=== PATIENT | female | born 1995 | race Caucasian/White ===

== ENCOUNTER 2019-09-14 10:51 | Outpatient (CLI) | payer OTHER ==
[~2019-09-14] VITALS: Ht 172.7 cm; Wt 92.1 kg
[2019-09-15] MEDS ORDERED: STUACAP PO (08:07)
== END 2019-09-14 12:09 | disposition home or self-care (01) ==
LOC: M LDO 10:51
PROVIDERS: ATTEND Registered Nurse Maternal Newborn
DX: O62.0 Primary inadequate contractions (principal); Z3A.40 40 weeks gestation of pregnancy
CPT/HCPCS: 59025; G0378; G0463

== ENCOUNTER 2019-09-14 17:39 | Outpatient (CLI) | payer OTHER ==
[~2019-09-14] VITALS: Ht 172.7 cm; Wt 92.8 kg
[2019-09-14] MEDS ORDERED: LR 1,000 ML IV ONE (19:00)
--- NOTE | 2019-09-14 19:05 | IPNPDOC ---
Text Note Date of Service The patient was seen on 09/14/19. NOTE Patient is 24yo at 40.3wks. C/o LBP and cramps. Intermittent contractions. No loss of fluid or bleeding. Good movement. PE: VS WNL GEN NAD, Comfortable SVE: 50/-3 FHT: Category 1, 130s, reactive, no decels. contractions irreg [id number]. A/P: Fetus reassuring. Patient not in labor (prodromal) likely from dehydration and no rupture of membranes. Patient given labor precautions, rupture of membranes precautions and kick counts. We will give her 1L IVF to assist with dehydration. Given patient relaxation advice to assist with prodromal labor. Cathy Gerard MD Sep 14, 2019 19:05
[2019-09-14 19:07] VITALS: BP 113/55
[2019-09-15] MEDS ORDERED: STUACAP PO (08:07)
== END 2019-09-14 19:45 | disposition home or self-care (01) ==
LOC: M LDO 17:39
PROVIDERS: ATTEND Obstetrics & Gynecology
DX: O26.893 Other specified pregnancy related conditions, third trimester (principal); O99.283 Endocrine, nutritional and metabolic diseases complicating pregnancy, third trimester; E86.0 Dehydration; Z3A.40 40 weeks gestation of pregnancy
CPT/HCPCS: 59025; G0378

== ENCOUNTER 2019-09-15 07:22 | Inpatient (IN) | payer OTHER ==
[~2019-09-15] VITALS: Ht 172.7 cm; Wt 91.5 kg
[2019-09-15 07:53] VITALS: BP 129/84
[2019-09-15] MEDS ORDERED: STUACAP PO (08:07)
[2019-09-15 08:24] LABS: HEMATOCRIT 34.7 % (36.0-47.0); HEMOGLOBIN 11.3 g/dl (12.0-15.5); MEAN CORPUSCULAR HEMOGLOBIN 28.5 pg (27.0-33.0); MEAN CORPUSCULAR HGB CONC 32.6 g/dl (32.0-36.5); MEAN CORPUSCULAR VOLUME 87.4 fl (80.0-96.0); PLATELET COUNT, AUTOMATED 357 10^3/uL (150-450); RED BLOOD COUNT 3.97 10^6/uL (4.00-5.40); WHITE BLOOD COUNT 18.7 10^3/uL (4.0-10.0)
[2019-09-15 08:25] VITALS: BP 128/84
[2019-09-15 08:51] VITALS: BP 135/94
[2019-09-15] MEDS ORDERED: OXYTOCIN 30 UNITS IN 0.9% NaCl 500ML IV BAG (J2590) As Ordered ONE (08:56)
[2019-09-15] MEDS ORDERED: LR 1,000 ML IV SCH (09:52)
[2019-09-15] MEDS ORDERED: LACTATED RINGER'S 1000 ML IV STA (09:52)
[2019-09-15] MEDS ORDERED: OXYTOCIN INJ 10 UNITS/ML VIAL (J2590) IV ONE (10:00)
[2019-09-15] MEDS ORDERED: OXYTOCIN DRIP 30 UNITS in IV 1 EA IV ONE (10:00)
[2019-09-15] MEDS ORDERED: MEASLES,MUMPS,RUBELLA VACCINE INJ (MMR-II) (90707) SC SCH (10:00)
[2019-09-15] MEDS ORDERED: ANUSOL HC CREAM 30GM TOP PRN (10:00)
[2019-09-15] MEDS ORDERED: DIBUCAINE 1% OINTMENT 30GM TOP PRN (10:00)
[2019-09-15] MEDS ORDERED: IBUPROFEN 800 MG TAB PO PRN (10:00)
[2019-09-15] MEDS ORDERED: ACETAMINOPHEN 500 MG TAB PO PRN (10:00)
[2019-09-15] MEDS ORDERED: DOCUSATE SODIUM 100 MG CAP PO PRN (10:00)
[2019-09-15] MEDS ORDERED: MOM 30ML SUSPENSION UDC PO PRN (10:00)
[2019-09-15] MEDS ORDERED: ACETAMINOPHEN TAB 650MG DOSE (2X325MG) PO PRN (10:00)
[2019-09-15] MEDS ORDERED: RHOGAM 300 MCG (1500 IU) INJ (J2790) IM SCH (10:00)
[2019-09-15] MEDS ORDERED: METHYLERGONOVINE MALEATE 0.2 MG TAB PO PRN (10:00)
[2019-09-15 10:13] LABS: CORD GAS ABE A -7.7; CORD GAS HCO3 A 17.8 MEQ/L; CORD GAS O2 SAT A 74.8 %; CORD GAS PO2 A 35.2 mmHg; CORD GAS SBC A 17.8 MEQ/L; CORD GAS TCO2 A 18.9 MEQ/L
[2019-09-15 10:14] LABS: CORD GAS PH A 7.312 UNITS
[2019-09-15 10:15] LABS: CORD GAS ABE V -7.8; CORD GAS O2 SAT V 81.2 %; CORD GAS PCO2 V 32.7 mmHg; CORD GAS PO2 V 39.2 mmHg; CORD GAS SBC V 17.9 MEQ/L
[2019-09-15 10:18] LABS: CORD GAS PH V 7.333 UNITS
[2019-09-15] MEDS: IBUPROFEN 600 MG TAB PO PRN (10:21)
[2019-09-15 11:20] VITALS: BP 123/56
[2019-09-15] MEDS ORDERED: LIDOCAINE 1% MDV 20ML VIAL As Ordered ONE (14:20)
[2019-09-15 18:00] VITALS: BP 113/61
[2019-09-16] MEDS ORDERED: OXYTOCIN INJ 10 UNITS/ML VIAL (J2590) As Ordered ONE (03:14)
[2019-09-16 05:39] VITALS: BP 101/61
[2019-09-16 08:00] LABS: HEMATOCRIT 26.6 % (36.0-47.0); MEAN CORPUSCULAR HGB CONC 32.3 g/dl (32.0-36.5); MEAN CORPUSCULAR VOLUME 89.6 fl (80.0-96.0); RED BLOOD COUNT 2.97 10^6/uL (4.00-5.40); WHITE BLOOD COUNT 16.5 10^3/uL (4.0-10.0)
[2019-09-16] MEDS: PRENATAL VITAMINS CHEWABLE TABLET PO SCH (08:01)
--- NOTE | 2019-09-16 08:04 | IPN ---
DATE: 09/16/2019 DAY #1: This lady is a 24-year-old, 2, now para 1, had a spontaneous vaginal delivery at 40 and 4 weeks of gestation a live male 8 pounds 4 ounces (3730 grams), score of 8 and 9 at one and five minutes, respectfully. Cord times one the body and meconium was noted at the cords on suctioning at the perineum. Arterial pH 7.31, base excess -7.7, venous pH 7.33, base excess -7.8. She had a first-degree, which was repaired in the usual fashion. This morning her blood pressure is 101/61, respirations 18, pulse 62, temperature is 98.8. Her admitting hemoglobin was 11.3, hematocrit 34.7 and platelets are 357. The rest the examination unremarkable. She is normocephalic, atraumatic. Neck full range of motion. Pupils equal and reactive to light. Distal pulses are symmetric. No evidence of deep venous thrombosis (DVT), pulmonary embolism (PE) or superficial phlebitis. Chest is clear bilaterally bases. No wheezes or rhonchi. No costovertebral angle (CVA) tenderness. Abdomen soft. Uterus 2 below. Lochia is moderate. Perineum is healing. She is having some difficulty in breast-feeding today. 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 Planned circumcision of the baby this morning at 0900 hours. Baby is nothing by mouth at 0800 hours. Plan is for discharge tomorrow morning. Medications are at [facility]. Patient will pick them up on Tuesday and will have a planned 6-week checkup at [facility].
[2019-09-16 08:09] LABS: HEMOGLOBIN 8.6 g/dl (12.0-15.5); PLATELET COUNT, AUTOMATED 240 10^3/uL (150-450)
[2019-09-16 18:00] VITALS: BP 111/56
[2019-09-17 05:32] VITALS: BP 115/55
[2019-09-17] MEDS ORDERED: IBUP80TA PO (07:15)
[2019-09-17] MEDS ORDERED: DOCU100C16 PO (07:15)
[2019-09-17] MEDS ORDERED: DIBU10OI TOP (07:15)
[2019-09-17] MEDS: PRENATAL VITAMINS CHEWABLE TABLET PO SCH (08:09)
[2019-09-17] MEDS: IBUPROFEN 600 MG TAB PO PRN (08:10)
--- NOTE | 2019-09-19 16:37 | DN ---
DATE OF DELIVERY: 09/15/2019 DELIVERY NOTE: This lady is a 24-year-old, 2, para 0, admitted in spontaneous labor at 40 and 4 weeks of gestation with spontaneous rupture of membranes of meconium stained liquor. She had a category 1 strip. She rapidly progressed to full dilatation. She delivered without anesthesia a live male , 8 pounds 4 ounces (3730 grams). score of 8 and 9 at one and five minutes. respectfully. Cord around the body times one and around the shoulder. There was meconium at delivery. We sucked out the baby for meconium from the trachea prior to delivery of the rest the baby. Arterial pH was 7.31, base excess was -7.7. Venous pH was 7.33, base excess was -7.8. Placenta delivered spontaneous thereafter. Three-vessels in the cord, membranes and tissues intact. The uterus contracted well under Pitocin. She had a first-degree tear, which was oversewn with a #2-0 Vicryl and [id number]. Anterior, posterior and lateral brooks complete. Sphincter was tight. The patient and baby tolerating procedure well.
--- NOTE | 2019-09-20 14:25 | DSES ---
DATE OF ADMISSION: 09/15/2019 DATE OF DISCHARGE: 09/17/2019 This lady is a 24-year-old, 2, para 1, who came with a spontaneous labor at 40 and 4 weeks of gestation. She had a spontaneous vaginal delivery of a male infant, 8 pounds 4 ounces, 3730 grams, Apgars of 8 and 9 at one and five minutes respectfully. Cord around the body times one. Meconium was noted at the cords, suctioned at the perineum. Arterial pH 7.31, base excess -7.7; venous pH 7.33, base excess -7.8. She had a first-degree tear which was repaired. Her blood pressure this morning is 115/55, respirations 17, pulse 68, temperature 97.9. Her admitting hemoglobin was 11.3, hematocrit 34.7 and platelets were 357. day #1 hemoglobin 8.6, hematocrit 26.6 and platelets 240. We discussed phlebitis, cystitis, mastitis, endometritis and cellulitis; diet, exercise and pain management; perineal, breast and wound care. The rest examination unremarkable. Normocephalic, atraumatic. Neck full range of motion. Pupils equal and reactive to light. Distal pulses symmetric. No evidence of deep vein thrombosis (DVT), pulmonary embolism (PE) or superficial phlebitis. Chest is clear bilaterally at bases. No wheezes or rhonchi. No CVA tenderness. Abdomen: Soft. Uterus two below. Lochia is moderate. Four quadrant bowel sounds are noted. Perineum is healing. She has no rashes, lesions or pruritus. No arthralgia or myalgia. No complaint of joint pain. No complaint of cough, wheeze, shortness of breath or dyspnea on exertion. No nausea, vomiting, diarrhea or constipation. Breast-feeding is going well, mobilized, voiding and passing gas. Plans are to have a 6-week checkup with [facility]. Meds were dispensed at [place]. All questions were answered. 30-minute discussion.
== END 2019-09-17 12:10 | disposition home or self-care (01) | DRG 807 ==
LOC: M LDO 07:22 → M LDI 07:33 → M OBS 11:19
PROVIDERS: ADMIT Obstetrics & Gynecology; ATTEND Obstetrics & Gynecology
PROC: 10E0XZZ Delivery of Products of Conception, External Approach (ICD-10-PCS; principal; 2019-09-15)
PROC: 0HQ9XZZ Repair Perineum Skin, External Approach (ICD-10-PCS; 2019-09-15)
DX: O48.0 Post-term pregnancy (principal); Z37.0 Single live birth; Z3A.40 40 weeks gestation of pregnancy; O70.0 First degree perineal laceration during delivery; O62.3 Precipitate labor; O69.82X0 Labor and delivery complicated by other cord entanglement, without compression, not applicable or unspecified; O77.0 Labor and delivery complicated by meconium in amniotic fluid